=== PATIENT | female | born 1975 | race Caucasian/White ===

== ENCOUNTER 2017-03-18 14:34 | Emergency (ER) | payer OTHER ==
[2017-03-18 15:28] VITALS: BP 100/67
--- NOTE | 2017-03-18 18:56 | ED ---
Leda Flowers Edward, scribed for Michel Barajas MD on 03/18/17 at 1449 . Neurological HPI - HPI Summary HPI Summary: 42 y/o female BIBA s/p sudden onset seizure earlier today at work. The seizure is described as a sense of panic followed by shaking on the floor. Pt vaguely remembers having a seizure and can feel her seizures coming on. Pt was placed on her side by her coworkers. Currently, the pt states she feels shaky and sees spots. PMHx seizures for the last 5 years - last seizure was 3 months ago (post medication). Prior to the medication (placed on it 1 years ago) the pt was getting seizures more often. - History of Current Complaint Stated Complaint: SEIZURE Time Seen by Provider: 03/18/17 14:43 Hx Obtained From: Patient Hx Last Menstrual Period: 09/01/15 Onset/Duration: Sudden Onset, Started minutes ago Timing: Sudden Onset Current Severity: None Number of Seizures: 1 Frequency: Episodes x___ - 1 Seizure Character: Generalized Associated Signs and Symptoms: Positive: Visual Changes - seeing spots and shakiness - Allergy/Home Medications Allergies/Adverse Reactions: Allergies Allergy/AdvReac Type Severity Reaction Status Date / Time No Known Allergies Allergy Verified 03/18/17 14:51 PMH/Surg Hx/FS Hx/Imm Hx Previously Healthy: No Endocrine/Hematology History: Denies: Hx Diabetes, Hx Thyroid Disease Cardiovascular History: Denies: Hx Hypertension, Other Cardiovascular Problems/Disorders Respiratory History: Denies: Hx Asthma, Hx Chronic Obstructive Pulmonary Disease (COPD), Other Respiratory Problems/Disorders GI History: Denies: Hx Ulcer, Other GI Disorders History: Denies: Other Problems/Disorders Sensory History: Denies: Hx Contacts or Glasses Opthamlomology History: Denies: Hx Contacts or Glasses Neurological History: Reports: Hx Seizures - 2013 FROM ETOH, Other Neuro Impairments/Disorders - siezures Psychiatric History: Reports: Hx Substance Abuse - Surgical History Surgery Procedure, Year, and Place: C SECTION 2001, [place], appy, ankle fixation because of fx Hx Anesthesia Reactions: No - Immunization History Date of Tetanus Vaccine: unknown Infectious Disease History: Denies: Hx Hepatitis, Hx Human Immunodeficiency Virus (HIV), History Other Infectious Disease - Family History Known Family History: Negative: Other Family History: No FHx of seizure - Social History Alcohol Use: Weekly Substance Use Type: Reports: Marijuana Substance Use Comment - Amount & Last Used: OCCASIONALLY Smoking Status (MU): Heavy Every Day Tobacco Smoker Type: Cigarettes Review of Systems Constitutional: Negative Eyes: Other - seeing spots ENT: Negative Cardiovascular: Negative Respiratory: Negative Gastrointestinal: Negative Genitourinary: Negative Musculoskeletal: Negative Skin: Negative Neurological: Other - seizure (1x), shakiness now Psychological: Normal All Other Systems Reviewed And Are Negative: Yes Physical Exam Triage Information Reviewed: Yes Vital Signs On Initial Exam: Initial Vitals Temp Pulse Resp BP Pulse Ox 97.8 F 94 15 115/75 98 03/18/17 14:42 03/18/17 14:42 03/18/17 14:42 03/18/17 14:42 03/18/17 14:42 Vital Signs Reviewed: Yes Appearance: Positive: Well-Appearing, No Pain Distress Skin: Positive: Warm, Skin Color Reflects Adequate Perfusion, Dry Head/Face: Positive: Normal Head/Face Inspection Eyes: Positive: Normal ENT: Positive: Normal ENT inspection Neck: Positive: Supple, Nontender Respiratory/Lung Sounds: Positive: Clear to Auscultation, Breath Sounds Present Cardiovascular: Positive: RRR Abdomen Description: Positive: Nontender, Soft Bowel Sounds: Positive: Present Musculoskeletal: Positive: Normal Neurological: Positive: Normal Psychiatric: Positive: Normal Diagnostics - Vital Signs Vital Signs Temp Pulse Resp BP Pulse Ox 03/18/17 15:31 75 15 100/67 03/18/17 15:00 96 100/67 96 03/18/17 14:55 87 15 97 03/18/17 14:53 136/76 03/18/17 14:42 97.8 F 94 15 115/75 98 - Laboratory Lab Statement: Any lab studies that have been ordered have been reviewed, and results considered in the medical decision making process. Course/Dx - Course Course Of Treatment: Ms. Ordoñez was broght in for having had a seizure. She said that she felt panicky for about ten minutes prior to the sz and she told her fellow workers to lay her on her side. She is C/O a LANGFORD now which she says she has after her seizures. I spoke with DR. Alvares and we are going to increase her keppra and get her F/U. - Diagnoses Provider Diagnoses: Seizure - Physician Notifications Discussed Care Of Patient With: Katya Alvares Time Discussed With Above Provider: 15:07 Discharge - Discharge Plan Condition: Stable Disposition: HOME Patient Education Materials: Recurrent Seizures in Adults (ED) Referrals: Katya Alvares MD [Medical Doctor] - 3 Days (PLEASE F/U IN 2-3 DAYS) Additional Instructions: INCREASE KEPPRA TO 750 MG BID The documentation as recorded by the Leda teixeira Edward accurately reflects the service I personally performed and the decisions made by me, Michel Barajas MD.
== END 2017-03-18 15:32 | disposition home or self-care (01) ==
LOC: ED 14:34
DX: R56.9 Unspecified convulsions (principal); F17.210 Nicotine dependence, cigarettes, uncomplicated
CPT/HCPCS: 99282

== ENCOUNTER 2017-07-23 05:44 | Emergency (ER) | payer OTHER ==
[2017-07-23] MEDS ORDERED: levETIRAcetam IV* 1,000 MG in NS 0.9% 100 ML* 100 ML IVPB ONE (05:51)
[2017-07-23] MEDS ORDERED: LORazepam INJ* 2 MG/ML 1 ML VIAL IV PUSH ONE (06:00)
[2017-07-23] MEDS ORDERED: NS 0.9% 1000 ML* 1,000 ML IV ONE (06:16)
[2017-07-23 06:34] LABS: ABS Basophils 0 10^3/ul (0-0.2); ABS Eosinophils 0.3 10^3/ul (0-0.6); ABS Lymphocytes 4.2 10^3/ul (1.0-4.8); ABS Monocytes 0.8 10^3/ul (0-0.8); ABS Neutrophils 9.5 10^3/ul (1.5-7.7); ABS Nucleated RBC 0 10^3/ul; Eosinophil % 2.1 % (0-6); Hematocrit 45 % (35-47); Hemoglobin 15.3 g/dl (12.0-16.0); Lymphocyte % 28.4 % (25-47); Mean Corpuscular HGB Conc 34 g/dl (31-36); Mean Corpuscular Hemoglobin 31 pg (27-31); Mean Corpuscular Volume 92 fL (80-97); Mean Platelet Volume 9 um3 (7.4-10.4); Nucleated Red Blood Cells % 0; Platelet Count 327 10^3/ul (150-450); Red Blood Count 4.91 10^6/ul (4.0-5.4); Red Cell Distribution Width 13 % (10.5-15)
[2017-07-23 06:47] LABS: EGFR Non-African American 66.4 (>60)
[2017-07-23 06:49] LABS: INR 0.84 (0.77-1.02)
--- NOTE | 2017-07-23 06:59 | ED ---
Allison Flowers Thomas, scribed for Micah Vanessa on 07/23/17 at 0651 . Syncope/Near Syncope - HPI Summary HPI Summary: The patient is a 42 year old female with a history of pseudoseizures brought in by ambulance with a seizure. She had a seizure when she was at work at [employer] prior to arrival. She is on Keppra and she confirms taking her medication today. She took Excedrin for a migraine earlier today. She denies abdominal pain or any other complaints. - History Of Current Complaint Chief Complaint: EDSeizure Time Seen by Provider: 07/23/17 06:15 Hx Obtained From: Patient Onset/Duration: Resolved Timing: Intermittent Episode Lasting Context: Witnessed Activity At Onset: Other - At work Associated Head Trauma: No Aggravating Factor(s): Other - Unknown Alleviating Factor(s): Spontaneous Resolution Associated Signs And Symptoms: Other - NEGATIVE: abdominal pain - Allergies/Home Medications Allergies/Adverse Reactions: Allergies Allergy/AdvReac Type Severity Reaction Status Date / Time No Known Allergies Allergy Verified 03/18/17 14:51 PMH/Surg Hx/FS Hx/Imm Hx Endocrine/Hematology History: Denies: Hx Diabetes, Hx Thyroid Disease Cardiovascular History: Denies: Hx Hypertension, Other Cardiovascular Problems/Disorders Respiratory History: Denies: Hx Asthma, Hx Chronic Obstructive Pulmonary Disease (COPD), Other Respiratory Problems/Disorders GI History: Denies: Hx Ulcer, Other GI Disorders History: Denies: Other Problems/Disorders Sensory History: Denies: Hx Contacts or Glasses Opthamlomology History: Denies: Hx Contacts or Glasses Neurological History: Reports: Hx Seizures - 2013 FROM ETOH, Other Neuro Impairments/Disorders - siezures Psychiatric History: Reports: Hx Substance Abuse - Surgical History Surgery Procedure, Year, and Place: C SECTION 2002, [place], appy, ankle fixation because of fx Hx Anesthesia Reactions: No - Immunization History Date of Tetanus Vaccine: unknown Infectious Disease History: No Infectious Disease History: Denies: Hx Hepatitis, Hx Human Immunodeficiency Virus (HIV), History Other Infectious Disease, Traveled Outside the [place] in Last 30 Days - Family History Known Family History: Negative: Other Family History: No FHx of seizure - Social History Alcohol Use: Weekly Substance Use Type: Reports: Marijuana Substance Use Comment - Amount & Last Used: OCCASIONALLY Smoking Status (MU): Heavy Every Day Tobacco Smoker Type: Cigarettes Review of Systems Negative: Fever Negative: Abdominal Pain Neurological: Other - Seizure All Other Systems Reviewed And Are Negative: Yes Physical Exam - Summary Physical Exam Summary: Appearance: Well appearing, no pain distress Skin: warm, dry, reflects adequate perfusion Head/face: normal Eyes: EOMI, BRIGHT ENT: normal Neck: supple, non-tender Respiratory: CTA, breath sounds present Cardiovascular: RRR, pulses symmetrical Abdomen: non-tender, soft Bowel: present Musculoskeletal: normal, strength/ROM intact Neuro: normal, sensory motor intact, A&Ox3 Triage Information Reviewed: Yes Vital Signs On Initial Exam: Initial Vitals Temp Pulse Resp BP Pulse Ox 98.4 F 111 16 116/68 98 07/23/17 05:51 07/23/17 05:51 07/23/17 05:51 07/23/17 05:51 07/23/17 05:51 Vital Signs Reviewed: Yes Diagnostics - Vital Signs Vital Signs Temp Pulse Resp BP Pulse Ox 07/23/17 06:01 104 95 07/23/17 06:00 18 111/71 07/23/17 05:51 98.4 F 111 16 116/68 98 - Laboratory Lab Results: Lab Results 07/23/17 Range/Units 05:55 WBC 15.0 H (3.5-10.8) 10^3/ul RBC 4.91 (4.0-5.4) 10^6/ul Hgb 15.3 (12.0-16.0) g/dl Hct 45 (35-47) % MCV 92 (80-97) fL MCH 31 (27-31) pg MCHC 34 (31-36) g/dl RDW 13 (10.5-15) % Plt Count 327 (150-450) 10^3/ul MPV 9 (7.4-10.4) um3 Neut % (Auto) 63.7 (38-83) % Lymph % (Auto) 28.4 (25-47) % [place] % (Auto) 5.5 (1-9) % Eos % (Auto) 2.1 (0-6) % Baso % (Auto) 0.3 (0-2) % Absolute Neuts (auto) 9.5 H (1.5-7.7) 10^3/ul Absolute Lymphs (auto) 4.2 (1.0-4.8) 10^3/ul Absolute Monos (auto) 0.8 (0-0.8) 10^3/ul Absolute Eos (auto) 0.3 (0-0.6) 10^3/ul Absolute Basos (auto) 0 (0-0.2) 10^3/ul Absolute Nucleated RBC 0 10^3/ul Nucleated RBC % 0 Result Diagrams: 07/23/17 05:55 07/23/17 05:55 Lab Statement: Any lab studies that have been ordered have been reviewed, and results considered in the medical decision making process. - Radiology CT Brain Radiology Interpretation Completed By: Radiologist - PENDING--SEE [place] Plus Course/Dx Assessment/Plan: The patient is a 42 year old female with a history of pseudoseizures brought in by ambulance with a seizure. In the ED course the patient was given IV fluids, Ativan, and Keppra. Bloodwork was ordered. CT Brain was ordered. The patient will be signed out to Dr. Hair pending CT Brain. - Diagnoses Provider Diagnoses: Seizure Discharge - Discharge Plan Condition: Stable Disposition: OTHER Discharge Disposition Comment: Signed out to Dr. Hair pending CT Brain. Referrals: No Primary Care Phys,NOPCP [Primary Care Provider] - The documentation as recorded by the Allison teixeira Thomas accurately reflects the service I personally performed and the decisions made by Otf martin Emmanuel.
--- NOTE | 2017-07-23 07:36 | RAD ---
HISTORY: Seizure COMPARISONS: October 15, 2013 TECHNIQUE: Multiple contiguous axial CT scans were obtained of the head without intravenous contrast. FINDINGS: HEMORRHAGE/INFARCT: There is no hemorrhage or acute infarct. MASSES/SHIFT: There is no mass or shift. EXTRA-AXIAL SPACES: There are no extra-axial fluid collections. SULCI AND VENTRICLES: The sulci and ventricles are normal in size and position for the patient's stated age. CEREBRUM: There are no focal parenchymal abnormalities. BRAINSTEM: There are no focal parenchymal abnormalities. CEREBELLUM: There are no focal parenchymal abnormalities. VESSELS: The vessels are grossly normal. PARANASAL SINUSES: The paranasal sinuses are clear. ORBITS: The orbits are unremarkable. BONES AND SOFT TISSUE: No bone or soft tissue abnormalities are noted. OTHER: None IMPRESSION: NO ACUTE INTRACRANIAL PATHOLOGY.
[2017-07-23 08:34] VITALS: BP 99/67
--- NOTE | 2017-07-23 17:54 | ED ---
Gilberto Flowers Angela, scribed for Hesham Hair MD on 07/23/17 at 0714 . Progress - Progress Note Progress Note: This pt was signed out by Dr. Vanessa, pending disposition, awaiting CT brain. Pt is a 42 y/o female presenting to [facility] via ambulance with a seizure. She had a seizure when she was at work at [employer] prior to arrival. Pt states she has a history of seizure and is currently on Keppra. Pt notes her last seizure was in March 2017. Physical Exam: VITAL SIGNS: Reviewed. GENERAL: Patient is a well-developed and nourished female who is lying comfortable in the stretcher. Patient is not in any acute respiratory distress. HEAD AND FACE: No signs of trauma. No ecchymosis, hematomas or skull depressions. No sinus tenderness. EYES: PERRLA, EOMI x 2, No injected conjunctiva, no nystagmus. EARS: Hearing grossly intact. Ear canals and tympanic membranes are within normal limits. MOUTH: Oropharynx within normal limits. NECK: Supple, trachea is midline, no adenopathy, no JVD, no carotid bruit, no c- spine tenderness, neck with full ROM. CHEST: Symmetric, no tenderness at palpation LUNGS: Clear to auscultation bilaterally. No wheezing or crackles. CVS: Regular rate and rhythm, S1 and S2 present, no murmurs or gallops appreciated. ABDOMEN: Soft, non-tender. No signs of distention. No rebound no guarding, and no masses palpated. Bowel sounds are normal. EXTREMITIES: FROM in all major joints, no edema, no cyanosis or clubbing. NEURO: Alert and oriented x 3. No acute neurological deficits. Speech is normal and follows commands. SKIN: Dry and warm GCS: 15 Pt will be discharged to home, in stable condition, with a diagnosis of seizures. Condition: Stable Disposition: Home - Results/Orders Results/Orders: Brain CT, as read by radiologist: IMPRESSION: No acute intracranial pathology. Dr. Hair has reviewed this radiology report. Re-Evaluation - Re-Evaluation First Eval Re-Evaluation Time: 07:44 Comment: Pt reports she takes Keppra for her seizures. Her last seizure was in March 2017. Course/Dx - Course Course Of Treatment: This pt was signed out by Dr. Vanessa to follow up on the Brain CT results. Lab work is within normal limits. Head CT shows no acute intracranial pathology. The pt is alert and oriented x3, and she is ambulating in the ED. I discussed the case with Dr. Alvares, neurologist, who recommends increasing Keppra from 750 mg BID to 1000 mg BID. The pt will also follow up with Dr. Alvares, pt will call for an appointment. Pt is hemodynamically stable, alert and oriented x3. - Diagnoses Provider Diagnoses: Seizure - Provider Notifications Discussed Care Of Patient With: Katya Alvares Time Discussed With Above Provider: 08:30 Instructed by Provider To: Other - I discussed pt care with Dr. Alvares, neurologist. The documentation as recorded by the Gilberto teixeira Angela accurately reflects the service I personally performed and the decisions made by me, Hesham Hair MD.
== END 2017-07-23 08:58 ==
LOC: ED 05:44
DX: G40.909 Epilepsy, unspecified, not intractable, without status epilepticus (principal)
CPT/HCPCS: 36415; 70450; 80053; 80177; 83605; 83735; 84484; 84702; 85025; 85610; 85730; 93005; 96361; 96374; 96375; 99283; J2060

== ENCOUNTER 2018-03-16 04:49 | Emergency (ER) | payer OTHER ==
--- NOTE | 2018-03-16 05:16 | ED ---
Upper Extremity Pain - HPI Summary HPI Summary: This patient is a 43 year old female presenting to [facility] accompanied by daughter with a chief complaint of right ankle and right wrist pain since yesterday night. Patient states that she fell at work when she tripped over a fan. She attempted to break her fall with her wrist and twisted both her wrist and her ankle. The pain is rated 8/10 in severity. Patient states both right arm and right ankle are in pain, but her arm hurts much more than her ankle. Symptoms aggravated by nothing. Symptoms alleviated by nothing. Patient denies any other medical concerns at this time. - History of Current Complaint Chief Complaint: EDExtremityUpper Stated Complaint: FALL, RIGHT WRIST/RIGHT HUBERT INJURY Time Seen by Provider: 03/16/18 05:00 Hx Obtained From: Patient Hx Last Menstrual Period: 09/01/15 Mechanism Of Injury: Fall From A Standing Position Onset/Duration: Started Hours Ago, Still Present Timing: Constant Severity Currently: Mild Pain Location: Wrist, Other: - ankle Aggravating Factor(s): Nothing, Movement Alleviating Factor(s): Nothing - Allergies/Home Medications Allergies/Adverse Reactions: Allergies Allergy/AdvReac Type Severity Reaction Status Date / Time No Known Allergies Allergy Verified 03/16/18 05:10 PMH/Surg Hx/FS Hx/Imm Hx Previously Healthy: No Endocrine/Hematology History: Denies: Hx Diabetes, Hx Thyroid Disease Cardiovascular History: Denies: Hx Hypertension, Other Cardiovascular Problems/Disorders Respiratory History: Denies: Hx Asthma, Hx Chronic Obstructive Pulmonary Disease (COPD), Other Respiratory Problems/Disorders GI History: Denies: Hx Ulcer, Other GI Disorders History: Denies: Other Problems/Disorders Sensory History: Denies: Hx Contacts or Glasses Opthamlomology History: Denies: Hx Contacts or Glasses Neurological History: Reports: Hx Seizures - 2013 FROM ETOH, Other Neuro Impairments/Disorders - siezures Psychiatric History: Reports: Hx Substance Abuse - Surgical History Surgery Procedure, Year, and Place: C SECTION 2001, [place], appy, ankle fixation because of fx Hx Anesthesia Reactions: No - Immunization History Date of Tetanus Vaccine: unknown Infectious Disease History: No Infectious Disease History: Denies: Hx Hepatitis, Hx Human Immunodeficiency Virus (HIV), History Other Infectious Disease, Traveled Outside the [place] in Last 30 Days - Family History Known Family History: Negative: Other Family History: No FHx of seizure - Social History Lives: With Family Alcohol Use: Weekly Alcohol Amount: 1x Hx Substance Use: No Substance Use Type: Reports: None Hx Tobacco Use: Yes Smoking Status (MU): Heavy Every Day Tobacco Smoker Type: Cigarettes Review of Systems Negative: Fever Positive: Other - right ankle and right wrist pain All Other Systems Reviewed And Are Negative: Yes Physical Exam - Summary Physical Exam Summary: Appearance: Well-appearing, Well-nourished, lying in bed comfortably Skin: Warm, dry, no obvious rash Eyes: sclera anicteric, no conjunctival pallor ENT: mucous membranes moist, pharynx appears normal Neck: Supple, nontender Respiratory: Clear to auscultation, no signs of respiratory distress Cardiovascular: Normal S1, S2. No murmurs. Normal distal pulses in tibial and radial bilaterally. Abdomen: Soft, nontender, normal active bowel sounds present Musculoskeletal: Right wrist normal, Right hand normal, Tenderness in proximal forearm. Elbow joint normal. ROM at shoulder also normal. Bruising and swelling along lateral midfoot Neurological: A&Ox3, awake and alert, mentation is normal, speech is fluent and appropriate Psychiatric: affect is normal, does not appear anxious or depressed Triage Information Reviewed: Yes Vital Signs On Initial Exam: Initial Vitals Temp Pulse Resp BP Pulse Ox 97.8 F 86 15 126/79 99 03/16/18 04:51 03/16/18 04:51 03/16/18 04:51 03/16/18 04:51 03/16/18 04:51 Vital Signs Reviewed: Yes Diagnostics - Vital Signs Vital Signs Temp Pulse Resp BP Pulse Ox 03/16/18 04:51 97.8 F 86 15 126/79 99 - Laboratory Lab Statement: Any lab studies that have been ordered have been reviewed, and results considered in the medical decision making process. - Radiology XR Forearm Xray Interpretation: No Acute Changes - Foot reveals No acute fracture. ED physician has reviewed this radiology report. Radiology Interpretation Completed By: Radiologist XR Foot Xray Interpretation: No Acute Changes - Foot reveals No acute fracture. ED physician has reviewed this radiology report. XR [place] Xray Interpretation: No Acute Changes - Forearm XR reveals No acute fracture. ED physician has reviewed this radiology report. Radiology Interpretation Completed By: Radiologist Course/Dx - Course Assessment/Plan: This patient is a 43 year old female presenting to [facility] accompanied by daughter with a chief complaint of right ankle and right wrist pain since yesterday night. Patient states that she fell at work when she tripped over a fan. Forearm XR reveals No acute fracture. ED physician has reviewed this radiology report. Foot reveals IMPRESSION: No acute fracture. ED physician has reviewed this radiology report. Patient will be discharged with a dx of foot and wrist sprain . Patient is advised to follow up with PCP in 3 days. The patient is agreeable with this plan. Discharge - Sign-Out/Discharge Documenting (check all that apply): Patient Departure - Discharge Plan Condition: Stable Disposition: HOME Patient Education Materials: Foot Sprain (ED), Wrist Sprain (ED) Referrals: Nicolette Garcia MD [Medical Doctor] - If Needed - Attestation Statements Document Initiated by Scribe: Yes Documenting Scribe: Kevin Bradley Provider For Whom Scribe is Documenting (Include Credential): Michel Richards MD Scribe Attestation: Kevin Flowers scribtunde for Michel Richards MD on 03/16/18 at 0548.
[2018-03-16 06:08] VITALS: BP 143/81
--- NOTE | 2018-03-16 07:44 | RAD ---
INDICATION: Right upper extremity pain after a fall the previous night TECHNIQUE: 2 views of the right forearm were obtained. FINDINGS: The bones are normal alignment. Joint spaces appear maintained. No fracture is seen. IMPRESSION: No radiographic evidence of acute fracture or dislocation. If the patient's symptoms persist, follow-up imaging is recommended.
--- NOTE | 2018-03-16 07:46 | RAD ---
INDICATION: Right ankle pain after a fall the previous night COMPARISON: None. TECHNIQUE: 3 views of the right foot were obtained. FINDINGS: Partially visualized is a plate and screw fixator spanning the distal right tibia that appears to be aligned and intact. The adequately corticated bones are otherwise properly aligned. Joint spaces appear maintained. Degenerative changes of the talocalcaneal joint include sclerotic change of the articulating surface of the distal tibia. No acute fracture, dislocation or focal bony abnormality is seen. IMPRESSION: POSTOPERATIVE AND DEGENERATIVE CHANGES DESCRIBED ABOVE WITHOUT RADIOGRAPHIC EVIDENCE OF AN ACUTE FRACTURE OR DISLOCATION. If the patient's symptoms persist, follow-up imaging is recommended. R0
== END 2018-03-16 06:07 | disposition home or self-care (01) ==
LOC: ED 04:49
DX: S93.601A Unspecified sprain of right foot, initial encounter (principal); S63.501A Unspecified sprain of right wrist, initial encounter; W01.0XXA Fall on same level from slipping, tripping and stumbling without subsequent striking against object, initial encounter; Y92.9 Unspecified place or not applicable; F17.210 Nicotine dependence, cigarettes, uncomplicated
CPT/HCPCS: 99282

== ENCOUNTER 2018-09-13 15:39 | Emergency (ER) | payer OTHER ==
[2018-09-13 15:47] VITALS: BP 112/69
--- NOTE | 2018-09-13 16:05 | ED ---
Influenza-Like Illness - HPI Summary HPI Summary: 43-year-old female presents with sinus congestion for the past 4 days. She states she's been having fevers. She admits to vomiting today. She denies any nausea currently. No chest pain or shortness of breath. She admits to a dry cough. She also notes a sore throat. She states she has a headache. States she has a history of seizures. - History of Current Complaint Chief Complaint: UCRespiratory Time Seen by Provider: 09/13/18 15:50 - Allergy/Home Medications Allergies/Adverse Reactions: Allergies Allergy/AdvReac Type Severity Reaction Status Date / Time No Known Allergies Allergy Verified 09/13/18 15:47 PMH/Surg Hx/FS Hx/Imm Hx Endocrine/Hematology History: Denies: Hx Diabetes, Hx Thyroid Disease Cardiovascular History: Denies: Hx Hypertension, Other Cardiovascular Problems/Disorders Respiratory History: Denies: Hx Asthma, Hx Chronic Obstructive Pulmonary Disease (COPD), Other Respiratory Problems/Disorders GI History: Denies: Hx Ulcer, Other GI Disorders History: Denies: Other Problems/Disorders Sensory History: Denies: Hx Contacts or Glasses Opthamlomology History: Denies: Hx Contacts or Glasses Neurological History: Reports: Hx Seizures - 2013 FROM ETOH, Other Neuro Impairments/Disorders - siezures Psychiatric History: Reports: Hx Substance Abuse - Surgical History Surgery Procedure, Year, and Place: C SECTION 2001, [facility], appy, ankle fixation because of fx Hx Anesthesia Reactions: No - Immunization History Date of Tetanus Vaccine: unknown Infectious Disease History: No Infectious Disease History: Denies: Hx Hepatitis, Hx Human Immunodeficiency Virus (HIV), History Other Infectious Disease, Traveled Outside the in Last 30 Days - Family History Known Family History: Negative: Other Family History: No FHx of seizure - Social History Alcohol Use: Occasionally Alcohol Amount: 1x Hx Substance Use: No Substance Use Type: Reports: None Hx Tobacco Use: Yes Smoking Status (MU): Heavy Every Day Tobacco Smoker Type: Cigarettes Amount Used/How Often: 1 ppd Review of Systems Negative: Fever Positive: Sore Throat, Nasal Discharge Negative: Chest Pain Positive: Cough. Negative: Shortness Of Breath Negative: Abdominal Pain All Other Systems Reviewed And Are Negative: Yes Physical Exam Triage Information Reviewed: Yes Vital Signs On Initial Exam: Initial Vitals Temp Pulse Resp BP Pulse Ox 97.7 F 88 18 112/69 99 03/22/19 15:43 09/13/18 15:43 09/13/18 15:43 09/13/18 15:43 09/13/18 15:43 Vital Signs Reviewed: Yes Appearance: Positive: Well-Appearing Skin: Positive: Warm, Dry Head/Face: Positive: Normal Head/Face Inspection Eyes: Positive: Normal, EOMI, BRIGHT, Conjunctiva Clear ENT: Positive: Normal ENT inspection, Pharynx normal, TMs normal Respiratory/Lung Sounds: Positive: Clear to Auscultation, Breath Sounds Present Cardiovascular: Positive: Normal, RRR Abdomen Description: Positive: Nontender, Soft Bowel Sounds: Positive: Present Musculoskeletal: Positive: Normal Neurological: Positive: Normal Psychiatric: Positive: Normal Diagnostics - Vital Signs Vital Signs Temp Pulse Resp BP Pulse Ox 09/13/18 15:43 97.7 F 88 18 112/69 99 - Laboratory Lab Statement: Any lab studies that have been ordered have been reviewed, and results considered in the medical decision making process. Flu Symptom Course/Dx - Course Course Of Treatment: 43-year-old female presents with sinus congestion for the past 4 days. She states she's been having fevers. She admits to vomiting today. She denies any nausea currently. No chest pain or shortness of breath. She admits to a dry cough. She also notes a sore throat. She states she has a headache. States she has a history of seizures. On exam has tenderness sinuses. Pharynx normal. Lungs clear auscultation. Flu negative. Discuss likely viral at this point if symptoms continue told to start the antibiotic. We'll add on Flonase Zofran and albuterol. flu neg. told establish care with primary. Patient understands agrees with plan - Diagnoses Differential Diagnosis/HQI/PQRI: Positive: Influenza, Upper Respiratory Infection, Other - sinusitis Provider Diagnoses: Rhinosinusitis Discharge - Sign-Out/Discharge Documenting (check all that apply): Patient Departure All imaging exams completed and their final reports reviewed: No Studies - Discharge Plan Condition: Good Disposition: HOME Prescriptions: Albuterol 2.5MG/3ML (0.083%)* [Ventolin 2.5 MG/3 ML NEB.CLAUDE*] 2.5 mg INH Q6H # 16 neb.claude Amoxicillin PO (*) [Amoxicillin 875 MG (*)] 875 mg PO BID #14 tab Fluticasone NASAL SPRAY 50MCG* [Flonase NASAL SPRAY 50MCG*] 2 spray BOTH NARES DAILY #1 btl Ondansetron ODT TAB* [Zofran 4 MG Odt TAB*] 4 mg PO Q6H PRN #10 tab.odt PRN Reason: Nausea Patient Education Materials: Rhinosinusitis (ED) Forms: *Work Release Referrals: [facility] [place], [place] [facility] [Outside] Additional Instructions: Use saline spray in nose as much as needed Use intranasal steroid one spray each nostril twice a day take zofran every 6 hours as needed for nausea Use nebulizer every 6 hours as needed for cough Take antibiotic in 3 days if no improvement, take twice a day for 7 days Take Tylenol or ibuprofen for headache every 6 hours establish care with primary Return to ED if develop any new or worsening symptoms - Billing Disposition and Condition Condition: GOOD Disposition: Home - Attestation Statements Provider Attestation: I was available for consult. This patient was seen by the ANASTASIIA. The patient was not presented to, seen by, or examined by me. -Kyle
[2018-09-13 16:07] LABS: Influenza A Molecular NEGATIVE (Negative); Influenza B Molecular NEGATIVE (Negative)
== END 2018-09-13 16:18 | disposition home or self-care (01) ==
LOC: UCEAST 15:39
DX: J32.9 Chronic sinusitis, unspecified (principal); F17.210 Nicotine dependence, cigarettes, uncomplicated
CPT/HCPCS: 99212; G0463

== ENCOUNTER 2020-05-06 05:41 | Inpatient (IN) ==
[2020-05-06] MEDS ORDERED: Buffered Lidocaine 1% SYRIN 1 ml INTRADERM ONE ×2 (06:00→06:19)
[2020-05-06] MEDS ORDERED: Lactated Ringers 1000 ml BAG 1,000 ML IV SCH (06:00)
[2020-05-06] MEDS ORDERED: Dexamethasone IV 4 MG/ML VIAL 1 ml VIAL ONE (06:18)
[2020-05-06] MEDS ORDERED: Heparin 5000 UNITS/ML 1 mL VIAL ONE (06:18)
[2020-05-06] MEDS ORDERED: Ondansetron 4 mg VIAL 2 MG/ML 2 ml VIAL ONE ×2 (06:19→06:52)
[2020-05-06] MEDS ORDERED: ceFAZolin 2 GM PREMIX 2 GM/50 ML BAG ONE ×2 (06:19→10:57)
[2020-05-06] MEDS ORDERED: Propofol 10 MG/ML 20 ML BTL ONE (06:52)
[2020-05-06] MEDS ORDERED: Rocuronium 50 mg VIAL 10 mg/ml 5 ml VIAL (50 mg) ONE (06:52)
[2020-05-06] MEDS ORDERED: Ketamine HCL 50 mg/ml 10 ml VIAL (500 MG) ONE (06:52)
[2020-05-06] MEDS ORDERED: fentaNYL 250 mcg/5 ml 50 MCG/ML 5 ml VIAL (250 MCG) ONE ×2 (06:52→09:30)
[2020-05-06] MEDS ORDERED: Midazolam 2 mg/2 ml VIAL 1 mg/ml 2 ml VIAL (2 mg) ONE ×2 (06:53→16:46)
[2020-05-06] MEDS ORDERED: Povidone Iodine 5% OPTH 30 ML BTL ONE (07:11)
[2020-05-06] MEDS ORDERED: Gentamicin ADULT 40 MG/ML VIAL (2 ML VIAL = 80 MG) ONE (07:11)
[2020-05-06] MEDS ORDERED: ceFAZolin VIAL VIAL ONE (07:12)
[2020-05-06] MEDS ORDERED: Bupivacaine 0.25% SDV 30 ML ONE ×2 (07:12→14:52)
[2020-05-06] MEDS ORDERED: Bacitracin INJECTION 50,000 UNITS ONE (07:12)
[2020-05-06] MEDS ORDERED: Succinylcholine 200 mg VIAL 20 mg/ml 10 ml VIAL (200 mg) ONE (07:29)
[2020-05-06] MEDS ORDERED: Phenylephrine IV 10 MG/ML 1 ml VIAL ONE (07:30)
[2020-05-06] MEDS ORDERED: ISOSULFAN BLUE 1% 5 ML VIAL 10 MG/ML SUBCUT ONE (08:09)
[2020-05-06] MEDS ORDERED: Sodium Chloride 0.9% 10 ML ONE (10:52)
[2020-05-06] MEDS ORDERED: HYDROmorphone 1 MG/1 ML SYRINGE ONE ×2 (12:20→15:49)
[2020-05-06] MEDS ORDERED: NS 0.9% 1000 ml BAG 1,000 ML IV SCH (13:00)
[2020-05-06] MEDS ORDERED: Magnesium Hydroxide LIQ 30 ML UDC PO PRN (13:05)
[2020-05-06] MEDS ORDERED: Al Hydrox/Mg Hydrox/Simet LIQ 30 ML UDC PO PRN (13:15)
[2020-05-06] MEDS ORDERED: Naloxone 0.4 mg VIAL 0.4 mg/ml 1 ml VIAL IV PRN (15:06)
[2020-05-06] MEDS ORDERED: DiMENhydriNATE IV 50 mg/ml 1 ml VIAL IV PUSH PRN (15:06)
[2020-05-06] MEDS ORDERED: Acetaminophen IV 1 GM/100ML 100 ML ONE (15:08)
[2020-05-06] MEDS: HYDROmorphone 1 MG/1 ML SYRINGE IV PRN ×2 (15:54→16:15)
[2020-05-06] MEDS ORDERED: Midazolam 2 mg/2 ml VIAL 1 mg/ml 2 ml VIAL (2 mg) IV SLOW PU ONE (16:49)
[2020-05-06] MEDS ORDERED: HYDROmorphone 0.5 MG/0.5 ML SYRINGE IV SLOW PU PRN (18:18)
[2020-05-06] MEDS: HYDROcodone/ACETAMIN 5/325 mg TAB PO PRN ×2 (19:10→22:34)
[2020-05-06] MEDS: Ondansetron 4 mg VIAL 2 MG/ML 2 ml VIAL IV PRN ×2 (19:10→23:00)
[2020-05-06] MEDS: ceFAZolin 2 GM PREMIX 2 GM/50 ML BAG IVPB SCH (19:39)
[2020-05-06] MEDS: Heparin 5000 UNITS/ML 1 mL VIAL SUBCUT SCH (22:35)
[2020-05-07] MEDS: HYDROcodone/ACETAMIN 5/325 mg TAB PO PRN ×4 (01:37→10:31)
[2020-05-07] MEDS: Ondansetron 4 mg VIAL 2 MG/ML 2 ml VIAL IV PRN ×2 (03:06→06:35)
[2020-05-07] MEDS: ceFAZolin 2 GM PREMIX 2 GM/50 ML BAG IVPB SCH ×2 (04:37→10:18)
[2020-05-07] MEDS: Heparin 5000 UNITS/ML 1 mL VIAL SUBCUT SCH (06:36)
[2020-05-07 11:05] VITALS: BP 155/88
== END 2020-05-07 11:30 | disposition home or self-care (01) | DRG 362 ==
LOC: AA 05:41 → SSU 18:14
PROVIDERS: ADMIT Surgery Surgical Critical Care; ATTEND Surgery Surgical Critical Care

== ENCOUNTER 2023-06-26 14:56 | Inpatient (IN) ==
[~2023-06-26 14:56] MED LIST: MANNITOL IVPB SCH; ZOLEDRONIC ACID IVPB SCH
[2023-06-26] MEDS ORDERED: HYDROmorphone 1 MG/1 ML SYRINGE ONE ×2 (15:01→16:57)
[2023-06-26 15:29] LABS: ABS Eosinophils 0.1 10^3/uL (0.0-0.5); ABS Lymphocytes 1.7 10^3/uL (1.0-4.8); ABS Monocytes 0.7 10^3/uL (0.0-0.9); ABS Neutrophils 3.2 10^3/uL (1.5-7.6); ABS Nucleated RBC 0.01 10^3/ul; Eosinophil % 1.6 %; Hematocrit 44.3 % (35-45); Hemoglobin 14.9 g/dL (11.5-14.3); Lymphocyte % 29.7 %; Mean Corpuscular Hemoglobin 30.2 pg (27-33); Mean Corpuscular Hgb Conc 33.7 g/dL (31-36); Mean Corpuscular Volume 89.7 fL (80-97); Mean Platelet Volume 8.4 fL (7.5-11.2); Nucleated Red Blood Cells % 0.2 %/100WBC (0.0-0.8); Platelet Count 273 10^3/uL (150-450); Red Blood Count 4.94 10^6/uL (3.63-4.92); Red Cell Distribution Width 13.9 % (12-17); White Blood Count 5.8 10^3/uL (3.8-11.8)
[2023-06-26 16:04] LABS: Albumin 4.4 g/dL (3.2-5.2); Albumin/Globulin Ratio 1.1 (1-3); Calcium 16.4 mg/dL (8.6-10.3); Creatinine, Serum 1.35 mg/dL (0.51-0.95); Globulin 3.9 g/dL (2-4); Magnesium 1.8 mg/dL (1.9-2.7); Potassium 3.2 mmol/L (3.5-5.0); Total Bilirubin 0.6 mg/dL (0.2-1.0); Total Protein 8.3 g/dL (6.4-8.9); eGFR CKD-EPI 48.8 (>60)
[2023-06-26] MEDS ORDERED: Polyethylene Glycol 3350 17 GM PACKET PO PRN (16:44)
[2023-06-26] MEDS ORDERED: Magnesium Sulfate 2 gm BAG 2 GM/50 ML BAG IVPB ONE (16:49)
[2023-06-26] MEDS ORDERED: Furosemide 20 mg/2 ml IV VIAL IV ONE (16:49)
[2023-06-26] MEDS: Morphine 2 MG/ML SYRINGE IV PRN ×2 (19:01→21:41)
[2023-06-26] MEDS: NS 0.9% 1000 ml BAG 1,000 ML IV SCH (19:02)
[2023-06-26] MEDS ORDERED: Senna TAB 8.6 mg TAB PO PRN (19:53)
[2023-06-26] MEDS ORDERED: Potassium Chlor 20 meq TAB.ER PO ONE (19:56)
[2023-06-26] MEDS: Nicotine PATCH 21 MG/24 HR PATCH TRANSDERM SCH (21:41)
[2023-06-26] MEDS: Heparin 5000 UNITS/ML 1 mL VIAL SUBCUT SCH (21:45)
[2023-06-27] MEDS: Morphine 2 MG/ML SYRINGE IV PRN ×7 (00:02→17:00)
[2023-06-27] MEDS: NS 0.9% 1000 ml BAG 1,000 ML IV SCH ×2 (04:02→16:19)
[2023-06-27 05:53] LABS: ABS Monocytes 0.3 10^3/uL (0.0-0.9); ABS Neutrophils 3.7 10^3/uL (1.5-7.6); Hematocrit 34.9 % (35-45); Lymphocyte % 19.6 %; Mean Corpuscular Hemoglobin 30.6 pg (27-33); Mean Corpuscular Hgb Conc 34.4 g/dL (31-36); Mean Corpuscular Volume 89.2 fL (80-97); Mean Platelet Volume 7.9 fL (7.5-11.2); Nucleated Red Blood Cells % 0.1 %/100WBC (0.0-0.8); Platelet Count 221 10^3/uL (150-450); Red Blood Count 3.91 10^6/uL (3.63-4.92); Red Cell Distribution Width 13.6 % (12-17)
[2023-06-27] MEDS: Heparin 5000 UNITS/ML 1 mL VIAL SUBCUT SCH ×3 (06:00→21:48)
[2023-06-27] MEDS ORDERED: NS 0.9% 1000 ml BAG 1,000 ML IV SCH (06:18)
[2023-06-27 06:59] LABS: Albumin 3.4 g/dL (3.2-5.2); Albumin/Globulin Ratio 1.3 (1-3); Calcium 11.9 mg/dL (8.6-10.3); Creatinine, Serum 1.08 mg/dL (0.51-0.95); Globulin 2.6 g/dL (2-4); Magnesium 1.8 mg/dL (1.9-2.7); Potassium 3.3 mmol/L (3.5-5.0); Total Bilirubin 0.5 mg/dL (0.2-1.0); eGFR CKD-EPI 63.8 (>60)
[2023-06-27] MEDS ORDERED: Nicotine PATCH 21 MG/24 HR PATCH TRANSDERM SCH (08:00)
[2023-06-27] MEDS: Polyethylene Glycol 3350 17 GM PACKET PO SCH (08:18)
[2023-06-27] MEDS: Morphine ER 15 mg TAB ** extended release PO SCH (08:19)
[2023-06-27] MEDS ORDERED: Glycerin ADULT 2.4 gm SUPP PR PRN (15:24)
[2023-06-27] MEDS: KCL 20 MEQ/100 ML IVPREMIX 20 MEQ/100 ML BAG IV SCH ×2 (16:19→23:56)
[2023-06-27] MEDS ORDERED: Piperacillin/Tazobac 3.375 BAG 3.375 GM/100 ML BAG IV ONE (16:44)
[2023-06-27] MEDS ORDERED: Zosyn per Pharmacy NOTE FOLLOW UP SCH (17:00)
[2023-06-27 17:11] LABS: Hematocrit 37.2 % (35-45); Hemoglobin 12.7 g/dL (11.5-14.3); Mean Corpuscular Hemoglobin 30.3 pg (27-33); Mean Corpuscular Hgb Conc 34.2 g/dL (31-36); Mean Corpuscular Volume 88.8 fL (80-97); Mean Platelet Volume 8.1 fL (7.5-11.2); Platelet Count 214 10^3/uL (150-450); Red Blood Count 4.19 10^6/uL (3.63-4.92); Red Cell Distribution Width 13.8 % (12-17); White Blood Count 5.3 10^3/uL (3.8-11.8)
[2023-06-27 18:43] LABS: ABS Basophils 0.1 10^3/uL (0.0-0.1); ABS Lymphocytes 0.9 10^3/uL (1.0-4.8); ABS Monocytes 0.2 10^3/uL (0.0-0.9); ABS Neutrophils 4.1 10^3/uL (1.5-7.6); Eosinophil % 0.5 %; Lymphocyte % 17.8 %; Nucleated Red Blood Cells % 0.1 %/100WBC (0.0-0.8)
[2023-06-27] MEDS: Nicotine PATCH 21 MG/24 HR PATCH TRANSDERM SCH (19:44)
[2023-06-27] MEDS ORDERED: NS 0.9% 500 ml BAG 500 ML IV ONE (20:00)
[2023-06-27] MEDS ORDERED: Furosemide 20 mg/2 ml IV VIAL IV SLOW PU ONE (20:17)
[2023-06-27] MEDS: Senna TAB 8.6 mg TAB PO SCH (21:49)
[2023-06-28] MEDS: Morphine ER 15 mg TAB ** extended release PO SCH ×3 (00:59→20:28)
[2023-06-28] MEDS: ZOSYN 3.375 GM Q8H per EXTENDED INFUSION IV SCH ×3 (02:54→23:32)
[2023-06-28] MEDS: Heparin 5000 UNITS/ML 1 mL VIAL SUBCUT SCH ×3 (05:39→23:45)
[2023-06-28] MEDS: Polyethylene Glycol 3350 17 GM PACKET PO SCH (08:33)
[2023-06-28 09:16] LABS: Urine Appearance Cloudy; Urine Bilirubin Negative (Negative); Urine Blood 3+ (Negative); Urine Color Yellow; Urine Glucose Negative (Negative); Urine Ketones Negative (Negative); Urine Nitrite Negative (Negative); Urine Protein Negative (Negative); Urine Specific Gravity 1.006 (1.002-1.030); Urine Urobilinogen Negative (Negative)
[2023-06-28 09:38] LABS: Urine Bacteria 1+ (Absent); Urine Red Blood Cell 3+(>10/hpf) (Absent); Urine Squamous Epithelial Cell Present (Absent); Urine White Blood Cell Trace(0-5/hpf) (Absent)
[2023-06-28] MEDS ORDERED: Sodium Phosphate ADULT ENEMA 133 ML BTL PR ONE (11:33)
[2023-06-28] MEDS: Morphine 2 MG/ML SYRINGE IV PRN ×4 (11:39→23:46)
[2023-06-28] MEDS: NS 0.9% 1000 ml BAG 1,000 ML IV SCH ×2 (12:00→23:32)
[2023-06-28] MEDS: Nicotine PATCH 21 MG/24 HR PATCH TRANSDERM SCH (14:49)
[2023-06-28 15:30] LABS: ABS Eosinophils 0.1 10^3/uL (0.0-0.5); ABS Lymphocytes 1.3 10^3/uL (1.0-4.8); ABS Monocytes 0.3 10^3/uL (0.0-0.9); ABS Neutrophils 3.4 10^3/uL (1.5-7.6); Eosinophil % 1.9 %; Hematocrit 33.8 % (35-45); Hemoglobin 11.7 g/dL (11.5-14.3); Lymphocyte % 25.7 %; Mean Corpuscular Hemoglobin 30.8 pg (27-33); Mean Corpuscular Hgb Conc 34.7 g/dL (31-36); Mean Corpuscular Volume 88.8 fL (80-97); Platelet Count 185 10^3/uL (150-450); Red Cell Distribution Width 13.9 % (12-17); White Blood Count 5.2 10^3/uL (3.8-11.8)
[2023-06-28 15:46] LABS: Albumin 3.2 g/dL (3.2-5.2); Albumin/Globulin Ratio 1.2 (1-3); Calcium 9.1 mg/dL (8.6-10.3); Creatinine, Serum 1.08 mg/dL (0.51-0.95); Globulin 2.7 g/dL (2-4); Potassium 3.3 mmol/L (3.5-5.0); Total Bilirubin 0.6 mg/dL (0.2-1.0); Total Protein 5.9 g/dL (6.4-8.9); eGFR CKD-EPI 63.8 (>60)
[2023-06-28] MEDS ORDERED: Potassium Chlor 20 meq TAB.ER PO ONE (16:35)
[2023-06-28 16:54] LABS: Urine Appearance Clear; Urine Bilirubin Negative (Negative); Urine Blood 3+ (Negative); Urine Color Yellow; Urine Glucose Negative (Negative); Urine Ketones Negative (Negative); Urine Nitrite Negative (Negative); Urine Protein Negative (Negative); Urine Specific Gravity 1.004 (1.002-1.030); Urine Urobilinogen Negative (Negative)
[2023-06-28 17:16] LABS: Urine Bacteria 1+ (Absent); Urine Red Blood Cell 3+(>10/hpf) (Absent); Urine Squamous Epithelial Cell Present (Absent); Urine White Blood Cell Trace(0-5/hpf) (Absent)
[2023-06-28] MEDS: KCL 20 MEQ/100 ML IVPREMIX 20 MEQ/100 ML BAG IV SCH ×2 (17:35→20:28)
[2023-06-28] MEDS: Senna TAB 8.6 mg TAB PO SCH (20:28)
[2023-06-29] MEDS: ZOSYN 3.375 GM Q8H per EXTENDED INFUSION IV SCH ×2 (03:38→11:04)
[2023-06-29] MEDS: Heparin 5000 UNITS/ML 1 mL VIAL SUBCUT SCH (05:34)
[2023-06-29 05:48] LABS: ABS Eosinophils 0.2 10^3/uL (0.0-0.5); ABS Lymphocytes 1.7 10^3/uL (1.0-4.8); ABS Monocytes 0.4 10^3/uL (0.0-0.9); ABS Neutrophils 4.5 10^3/uL (1.5-7.6); Eosinophil % 2.5 %; Hematocrit 33.5 % (35-45); Hemoglobin 11.6 g/dL (11.5-14.3); Lymphocyte % 25.4 %; Mean Corpuscular Hemoglobin 30.5 pg (27-33); Mean Corpuscular Hgb Conc 34.6 g/dL (31-36); Mean Corpuscular Volume 88.1 fL (80-97); Mean Platelet Volume 7.9 fL (7.5-11.2); Nucleated Red Blood Cells % 0.1 %/100WBC (0.0-0.8); Platelet Count 195 10^3/uL (150-450); White Blood Count 6.7 10^3/uL (3.8-11.8)
[2023-06-29 06:09] LABS: Calcium 8.6 mg/dL (8.6-10.3); Creatinine, Serum 0.88 mg/dL (0.51-0.95); Magnesium 2.1 mg/dL (1.9-2.7); Potassium 3.5 mmol/L (3.5-5.0); eGFR CKD-EPI 81.5 (>60)
[2023-06-29] MEDS: Morphine ER 15 mg TAB ** extended release PO SCH (08:06)
[2023-06-29] MEDS: Nicotine PATCH 21 MG/24 HR PATCH TRANSDERM SCH (08:07)
[2023-06-29] MEDS: Morphine 2 MG/ML SYRINGE IV PRN (11:04)
[2023-06-29] MEDS: Polyethylene Glycol 3350 17 GM PACKET PO SCH (11:04)
[2023-06-29 14:16] VITALS: BP 98/75
== END 2023-06-29 15:59 | disposition home or self-care (01) | DRG 254 ==
LOC: CHOA 14:56 → MEDTELE 18:17
PROVIDERS: ADMIT Internal Medicine Hematology & Oncology; ATTEND Student in an Organized Health Care Education/Training Program